=== PATIENT | female | born 1950 | race Caucasian/White ===

== ENCOUNTER 2023-11-19 09:21 | Outpatient (CLI) | payer MEDICARE | END 2023-11-19 09:22 | disposition home or self-care (01) | LOC: CSHMAMMO 09:21 → MERGE 10:00 | PROVIDERS: ATTEND Family Medicine Sports Medicine | DX: Z12.31 Encounter for screening mammogram for malignant neoplasm of breast (principal); Z80.3 Family history of malignant neoplasm of breast; Z85.820 Personal history of malignant melanoma of skin | CPT/HCPCS: 77067 ==